=== PATIENT | male | born 1945 | race Two or more races ===

== ENCOUNTER 2021-04-14 12:15 | Inpatient (IN) | payer OTHER ==
[~2021-04-14] VITALS: Ht 172.7 cm; Wt 61.2 kg
[2021-04-14] MEDS ORDERED: TOPROL XL25 M1 PO (14:26)
[2021-04-14] MEDS ORDERED: PRAVASTATIN SOD40 MG PO (14:26)
[2021-04-14] MEDS ORDERED: LANOXIN125 MCG PO (14:27)
[2021-04-20] MEDS ORDERED: PROAIR HFA8.5 GM (08:32)
[2021-04-20] MEDS ORDERED: SIMBRINZA 1%-0.28 ML (08:32)
[2021-04-20] MEDS ORDERED: LUMIGAN2.5 M1 (08:32)
[2021-04-20] MEDS ORDERED: ANORO ELLIPTA1 EACH (08:32)
[2021-04-20] MEDS ORDERED: MONTELUKAST SOD10 MG (08:32)
[2021-04-20] MEDS ORDERED: LOPRESSOR25 MG (08:32)
[2021-04-20] MEDS ORDERED: FLONASE16 GM (08:32)
== END 2021-04-22 12:42 | disposition home or self-care (01) | DRG 708 ==
LOC: O/R 04-20 05:12 → SURH 04-20 05:12 → O/R 04-20 13:23 → SURH 04-20 17:13
PROVIDERS: ADMIT Urology; ATTEND Urology
PROC: 07BC0ZX Excision of Pelvis Lymphatic, Open Approach, Diagnostic (ICD-10-PCS; 2021-04-20)
PROC: 0VB30ZZ Excision of Bilateral Seminal Vesicles, Open Approach (ICD-10-PCS; 2021-04-20)
PROC: 0VT00ZZ Resection of Prostate, Open Approach (ICD-10-PCS; principal; 2021-04-20 07:00)
DX: C61 Malignant neoplasm of prostate (principal)